=== PATIENT | male | born 2000 | race Caucasian/White ===

== ENCOUNTER 2018-10-12 | Emergency (ER) | payer OTHER ==
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
== END 2018-10-13 00:55 | disposition home or self-care (01) ==

== ENCOUNTER 2019-09-03 | Emergency (ER) | payer BC, OTHER ==
--- NOTE | 2019-09-03 07:31 | ED.PDOC ---
History of Present Illness - General Chief Complaint: Eye Problems Stated Complaint: Left eye redness and drainage Time Seen by Provider: 09/03/19 07:29 Source: patient Exam Limitations: no limitations - History of Present Illness Initial Comments: Pt reports he felt slight discomfort at 830p last night. He said by ~10p it started draining clear discharge. No visual change. He says pain 0/10 at this time. He denies F/C, cough, congestion. No history of seasonal allergies. He said he was sitting on sofa when it started, so no injury. Timing/Duration: abrupt Severity: mild EENT Location: eye (L) Prearrival Treatment: no prearrival treatment Improving Factors: nothing Worsening Factors: nothing Associated Symptoms: denies symptoms Allergies/Adverse Reactions: Allergies NO KNOWN ALLERGY Allergy (Verified 09/03/19 07:29) Home Medications: Ambulatory Orders Polymyxin B-Trimethoprim [Polytrim] 2 yeison OP TID #7 yeison 09/03/19 Review of Systems - Review of Systems Constitutional: States: no symptoms reported EENTM: States: see HPI, eye pain, tearing. Denies: blurred vision, double vision, ear pain, ear discharge, nose pain, nose congestion, throat pain, throat swelling, mouth pain, mouth swelling Respiratory: States: no symptoms reported Cardiology: States: no symptoms reported Gastrointestinal/Abdominal: States: no symptoms reported Skin: States: no symptoms reported Past Medical History (General) - Patient Medical History Hx Asthma: Yes - Vaccination History Hx Tetanus, Diphtheria Vaccination: No Hx Influenza Vaccination: No Hx Pneumococcal Vaccination: No - Social History Hx Tobacco Use: No Hx Alcohol Use: No Family Medical History - Family History Mother Family History: Unknown Physical Exam - Physical Exam General Appearance: Alert Eye Exam: left other - Injected conjunctiva Nasal Exam: normal inspection Throat Exam: normal mouth inspection Neck: non-tender, full range of motion Departure - Departure Clinical Impression: Conjunctivitis Time of Disposition: 07:34 Disposition: Discharge to Home or Self Care Condition: Excellent Departure Forms: ED Discharge - Pt. Copy, Patient Portal Self Enrollment Referrals: BELTRAN VEGAS [Primary Care Provider] - 1-2 Weeks Prescriptions: Polymyxin B-Trimethoprim [Polytrim] 2 yeison OP TID #7 yeison Home Medications: Ambulatory Orders Polymyxin B-Trimethoprim [Polytrim] 2 yeison OP TID #7 yeison 09/03/19
== END 2019-09-03 07:45 | disposition home or self-care (01) ==
DX: H10.9 Unspecified conjunctivitis (principal)